=== PATIENT | female | born 1955 | race Asian ===

== ENCOUNTER 2022-06-13 11:45 | Observation (INO) | payer BC, OTHER ==
[~2022-06-13] VITALS: Ht 160 cm; Wt 77.1 kg
[2022-06-13 11:56] VITALS: BP_SYST 155
[2022-06-13] MEDS ORDERED: INSULIN REGULAR, HUMAN 10 UNITS/0.1 ML INJ IVP ONE (12:00)
[2022-06-13] MEDS ORDERED: SODIUM BICARBONATE 8.4% JECT 50 MEQ/50 ML SYRINGE IVP ONE (12:00)
[2022-06-13] MEDS ORDERED: SODIUM POLYSTYRENE SULFONATE 15 GM/60 ML UDBTL PO ONE (12:00)
[2022-06-13] MEDS ORDERED: DEXTROSE 50% JECT 50 ML DISP.SYRIN IVP ONE (12:00)
[2022-06-13] MEDS ORDERED: ALBUTEROL SULFATE 0.083% 2.5 MG/3 ML VIAL.NEB INH ONE (12:00)
[2022-06-13] MEDS ORDERED: CALCIUM CHLORIDE 1 GM/10 ML DISP.SYRIN (14 mEq Ca++/SYR) IVP ONE (12:00)
[2022-06-13 12:11] LABS: BASOPHILS # (AUTO) 0.1 K/uL (0.0-0.2); BASOPHILS % (AUTO) 0.8 % (0.0-2.0); EOSINOPHILS # (AUTO) 0.4 K/uL (0.0-0.4); EOSINOPHILS % (AUTO) 5.5 % (0.0-4.0); HEMOGLOBIN 8.4 g/dL (12.0-16.0); LYMPHOCYTES # (AUTO) 1.7 K/uL (1.0-5.5); LYMPHOCYTES % (AUTO) 23.4 % (20.5-51.5); MEAN CORPUSCULAR HEMOGLOBIN 32 pg (27-31); MEAN CORPUSCULAR HGB CONC 32 % (32-36); MEAN CORPUSCULAR VOLUME 97 fL (79.0-98.0); MONOCYTES # (AUTO) 0.4 K/uL (0.0-1.0); MONOCYTES % (AUTO) 6.2 % (1.7-9.3); NEUTROPHILS # (AUTO) 4.6 K/uL (1.8-7.7); NEUTROPHILS % (AUTO) 64.1 % (40.0-70.0); PLATELET COUNT (AUTO) 283 K/uL (130-430); RED BLOOD CELL COUNT(AUTO) 2.67 MIL/uL (4.2-6.2); RED CELL DISTRIBUTION WIDTH 14.4 % (9.0-15.0); WHITE BLOOD COUNT (AUTO) 7.1 K/uL (4.8-10.8)
[2022-06-13 12:22] LABS: ANION GAP 13 (5-15); CALCIUM 8.9 mg/dL (8.4-11.0); CHLORIDE 108 mmol/L (98-107); CREATININE 4.52 mg/dL (0.55-1.30); GLUCOSE 100 mg/dL (70-99); SODIUM SERUM 138 mmol/L (136-145); UREA NITROGEN, BLOOD 59 mg/dL (8-21)
[2022-06-13 12:26] LABS: PROTHROMBIN TIME 9.7 SECS (9.5-12.5)
[2022-06-13 12:31] LABS: ALANINE AMINOTRANSFERASE 7 U/L (12-78); ALBUMIN 3.3 g/dL (3.4-4.8); ASPARTATE AMINOTRANSFERASE 12 U/L (10-37); TOTAL BILIRUBIN 0.6 mg/dL (0.0-1.0)
[2022-06-13 12:33] LABS: GFR AFRICAN AMERICAN 13 mL/min (>90)
[2022-06-13 12:34] LABS: POTASSIUM 5.9 mmol/L (3.5-5.1)
[2022-06-13 14:58] LABS: CALCIUM 10.3 mg/dL (8.4-11.0); CREATININE 4.63 mg/dL (0.55-1.30); POTASSIUM 4.4 mmol/L (3.5-5.1)
[2022-06-13] MEDS ORDERED: NACL 0.9% 1,000 ML IV SCH (18:30)
[2022-06-13 20:55] VITALS: BP_SYST 157
[2022-06-13] MEDS ORDERED: hydrALAZINE HCL 10 MG TABLET PO PRN (21:30)
[2022-06-13] MEDS ORDERED: SODI325T PO (21:53)
[2022-06-13] MEDS ORDERED: SPIR25TA PO (21:53)
[2022-06-13] MEDS ORDERED: PATI8.4P PO (21:53)
[2022-06-13] MEDS ORDERED: AMLO5TAB4 PO (21:53)
[2022-06-13] MEDS ORDERED: LORA10CA PO (21:53)
[2022-06-13] MEDS ORDERED: HYDR-4037 PO (21:53)
[2022-06-13] MEDS ORDERED: ESCI10TA PO (21:53)
[2022-06-14 01:24] LABS: BILIRUBIN,URINE NEGATIVE (NEGATIVE); BLOOD, URINE NEGATIVE (NEGATIVE); CLARITY/URINE CLEAR (CLEAR); COLOR,URINE YELLOW (YELLOW); GLUCOSE,URINE NEGATIVE (NEGATIVE); KETONES,URINE NEGATIVE (NEGATIVE); LEUKOCYTE ESTERASE ,URINE NEGATIVE (NEGATIVE); NITRITE, URINE NEGATIVE (NEGATIVE); PH,URINE 5.5 (5.0-8.0); PROTEIN URINE 2+ (NEGATIVE); UROBILINOGEN,URINE 0.2 (0.2-1.0)
[2022-06-14] MEDS: traMADol HCL HCL 50 MG TABLET (ULTRAM) PO PRN ×3 (04:27→15:51)
[2022-06-14] MEDS ORDERED: EPOETIN ALFA-EPBX 4,000 UNITS/ML VIAL SUBCUT ONE (07:45)
[2022-06-14 08:04] LABS: BASOPHILS # (AUTO) 0.1 K/uL (0.0-0.2); BASOPHILS % (AUTO) 0.9 % (0.0-2.0); EOSINOPHILS # (AUTO) 0.1 K/uL (0.0-0.4); EOSINOPHILS % (AUTO) 1.8 % (0.0-4.0); HEMATOCRIT 24.7 % (36-48); HEMOGLOBIN 8.1 g/dL (12.0-16.0); LYMPHOCYTES # (AUTO) 1.2 K/uL (1.0-5.5); LYMPHOCYTES % (AUTO) 16.8 % (20.5-51.5); MEAN CORPUSCULAR HEMOGLOBIN 32 pg (27-31); MEAN CORPUSCULAR HGB CONC 33 % (32-36); MEAN CORPUSCULAR VOLUME 97 fL (79.0-98.0); MONOCYTES # (AUTO) 0.4 K/uL (0.0-1.0); MONOCYTES % (AUTO) 6.3 % (1.7-9.3); NEUTROPHILS # (AUTO) 5.3 K/uL (1.8-7.7); NEUTROPHILS % (AUTO) 74.2 % (40.0-70.0); PLATELET COUNT (AUTO) 277 K/uL (130-430); RED BLOOD CELL COUNT(AUTO) 2.54 MIL/uL (4.2-6.2); RED CELL DISTRIBUTION WIDTH 14.4 % (9.0-15.0); WHITE BLOOD COUNT (AUTO) 7.1 K/uL (4.8-10.8)
[2022-06-14 08:15] LABS: CALCIUM 9.2 mg/dL (8.4-11.0); CREATININE 3.96 mg/dL (0.55-1.30)
[2022-06-14 08:36] LABS: POTASSIUM 5.8 mmol/L (3.5-5.1)
[2022-06-14 08:38] VITALS: BP_SYST 179
[2022-06-14] MEDS ORDERED: SODIUM POLYSTYRENE SULFONATE 15 GM/60 ML UDBTL PO ONE (09:15)
[2022-06-14 13:00] VITALS: BP_SYST 164
[2022-06-14 14:48] LABS: CALCIUM 9.4 mg/dL (8.4-11.0); CREATININE 3.81 mg/dL (0.55-1.30); POTASSIUM 5.1 mmol/L (3.5-5.1)
[2022-06-14] MEDS ORDERED: amLODIPine BESYLATE 5 MG TABLET PO ONE (15:30)
[2022-06-14 15:53] VITALS: BP_SYST 175
[2022-06-14 16:44] VITALS: BP_SYST 144
== END 2022-06-14 18:00 | disposition home or self-care (01) ==
LOC: SED 11:45 → STU 14:40
PROVIDERS: ADMIT Internal Medicine; ATTEND Preventive Medicine Preventive Medicine/Occupational Environmental Medicine
DX: N17.9 Acute kidney failure, unspecified (principal); Z20.822 Contact with and (suspected) exposure to COVID-19; I12.9 Hypertensive chronic kidney disease with stage 1 through stage 4 chronic kidney disease, or unspecified chronic kidney disease; E11.22 Type 2 diabetes mellitus with diabetic chronic kidney disease; N18.4 Chronic kidney disease, stage 4 (severe); D63.1 Anemia in chronic kidney disease; E87.5 Hyperkalemia; E78.5 Hyperlipidemia, unspecified; E78.00 Pure hypercholesterolemia, unspecified; Z88.0 Allergy status to penicillin; Z79.899 Other long term (current) drug therapy
CPT/HCPCS: 36415; 71045; 76770; 80048; 80053; 81003; 82962; 83880; 84484; 85025; 85610-TC; 85730-TC; 94640; 96361; 96372; 96374; 99284; G0378; J1815; J7613; Q5106

== ENCOUNTER 2023-02-19 13:45 | Emergency (ER) | payer BC ==
[~2023-02-19] VITALS: Ht 157.5 cm; Wt 77.6 kg
[2023-02-19 13:45] VITALS: BP_SYST 187
[~2023-02-19 13:45] MED LIST: AMLO5TAB4 PO; ESCI10TA PO; HYDR-4037 PO; LORA10CA PO; PATI8.4P PO; SODI325T PO; SPIR25TA PO
--- NOTE | 2023-02-19 13:45 | NUR ---
BROUGHT BACK TO BED #3 AND TRIAGED. REPORT GIVEN TO MYLA
--- NOTE | 2023-02-19 14:24 | NUR ---
DR JIMENEZ AT BEDSIDE FOR EVALUATION
[2023-02-19 14:47] LABS: BASOPHILS # (AUTO) 0.1 K/uL (0.0-0.2); BASOPHILS % (AUTO) 0.9 % (0.0-2.0); EOSINOPHILS # (AUTO) 0.5 K/uL (0.0-0.4); EOSINOPHILS % (AUTO) 7.6 % (0.0-4.0); HEMATOCRIT 25.1 % (36-48); LYMPHOCYTES # (AUTO) 1.5 K/uL (1.0-5.5); LYMPHOCYTES % (AUTO) 21.1 % (20.5-51.5); MEAN CORPUSCULAR HEMOGLOBIN 32 pg (27-31); MEAN CORPUSCULAR HGB CONC 32 % (32-36); MEAN CORPUSCULAR VOLUME 100 fL (79.0-98.0); MONOCYTES # (AUTO) 0.5 K/uL (0.0-1.0); MONOCYTES % (AUTO) 6.5 % (1.7-9.3); NEUTROPHILS # (AUTO) 4.5 K/uL (1.8-7.7); NEUTROPHILS % (AUTO) 63.9 % (40.0-70.0); PLATELET COUNT (AUTO) 326 K/uL (130-430); RED CELL DISTRIBUTION WIDTH 15.6 % (9.0-15.0); WHITE BLOOD COUNT (AUTO) 7.1 K/uL (4.8-10.8)
[2023-02-19 14:52] LABS: CALCIUM 8.3 mg/dL (8.4-11.0); CREATININE 4.51 mg/dL (0.55-1.30)
[2023-02-19 14:56] LABS: ALBUMIN 3.2 g/dL (3.4-4.8); C-REACTIVE PROTEIN QUANT 2.4 mg/dL (0-0.5); TOTAL BILIRUBIN 0.2 mg/dL (0.0-1.0)
[2023-02-19] MEDS ORDERED: CLIN-142 PO (15:06)
[2023-02-19 15:35] VITALS: BP_SYST 130
--- NOTE | 2023-02-19 15:37 | NUR ---
Patient given written and verbal discharge instructions and verbalizes understanding. ER MD discussed with patient the results and treatment provided. Patient in stable condition. ID arm band removed. Patient educated on pain management and to follow up with PMD. Pain Scale []. Opportunity for questions provided and answered. Medication side effect fact sheet provided.
== END 2023-02-19 15:37 | disposition home or self-care (01) ==
LOC: SED 13:45
DX: L03.011 Cellulitis of right finger (principal); R22.31 Localized swelling, mass and lump, right upper limb; I10 Essential (primary) hypertension; E78.00 Pure hypercholesterolemia, unspecified; Z88.0 Allergy status to penicillin; Z88.2 Allergy status to sulfonamides; Z88.5 Allergy status to narcotic agent; Z88.8 Allergy status to other drugs, medicaments and biological substances; Z79.899 Other long term (current) drug therapy
CPT/HCPCS: 36415; 73140-TC; 80053; 83605; 85025; 86140; 99284